=== PATIENT | male | born 1935 | race Hispanic/Latino ===

== ENCOUNTER 2024-04-05 06:28 | Emergency (ER) | payer OTHER ==
[2024-04-05 23:30] LABS: %Lymphocytes 6.1 % (21.0-51.0); %Neutrophils 87.3 % (42.0-75.0); Hematocrit 36.1 % (42.0-52.0); Hemoglobin 11.9 g/dL (14.0-18.0); Mean Corpuscular Hemoglobin 32.1 pg (27.0-31.0); Mean Corpuscular Volume 97.3 fl (78.0-98.0); Mean Platelet Volume 4.8 fL (7.4-10.4); Platelet Count 225 10x3/uL (130-400); Red Blood Cell (RBC) Count 3.71 mill/uL (4.70-6.10); White Blood Cell (WBC) Count 11.1 10x3/uL (4.8-10.8)
[2024-04-05 23:31] LABS: #Basophils 0.1 thou/uL (0.0-0.2); #Lymphocytes 0.7 thou/uL (1.20-3.40); #Monocytes 0.7 thou/uL (0.11-0.59); #Neutrophils 9.7 thou/uL (1.40-6.50); %Basophils 0.4 % (0.0-1.0); %Eosinophils 0.1 % (0.0-10.0); Lactic Acid 1.14 mmol/L (0.5-2.2)
[2024-04-05 23:32] LABS: ALT (SGPT) 11 U/L (8-55); AST (SGOT) 10 U/L (5-34); Acetaminophen Less than 10 mcg/mL (Less than 10); Albumin 2.9 g/dL (3.4-4.8); Alkaline Phosphatase 63 U/L (40-110); Anion Gap 14 mmol/L (10-20); BUN (Urea Nitrogen) 26 mg/dL (8.4-25.7); Bilirubin, Total 0.7 mg/dL (0.2-1.2); Calc. Creatinine Clearance 0 mL/min (70-130); Calcium 9.1 mg/dL (7.6-10.4); Carbon Dioxide 28 mmol/L (23-31); Chloride 106 mmol/L (98-107); Estimated GFR 52; Globulin 3.5 g/dL (2.4-3.5); Glucose 103 mg/dL (83-110); Potassium 3.9 mmol/L (3.5-5.1); Protein, Total 6.4 g/dL (5.8-8.1); Sodium 144 mmol/L (136-145)
[2024-04-05 23:33] LABS: Alcohol Less than 10.0 mg/dL (Less than 10); INR-International Normal Ratio 1.1; Prothrombin Time 14.1 sec (12.0-14.7); Salicylate Less than 8.0 mg/dL (Less than 8.0); Troponin I 0.075 ng/mL (< 0.028)
[2024-04-05 23:34] LABS: Amphetamine Not Detected (NotDetected); Barbiturates Screen Not Detected (NotDetected); Benzodiazepine Screen Not Detected (NotDetected); Cocaine Metabolite Screen Not Detected (NotDetected); Methadone Not Detected (NotDetected); Methamphetamine Not Detected (NotDetected); Opiate Screen Not Detected (NotDetected); Oxycodone Screen Not Detected (NotDetected); Phencyclidine (PCP) Not Detected (NotDetected); THC/Cannabinoid Screen Not Detected (NotDetected); Tricyclic Screen Not Detected (NotDetected)
[2024-04-05 23:35] LABS: Clarity Clear (Clear)
[2024-04-05 23:36] LABS: Bilirubin Negative (Negative); Blood, Urine Moderate (Negative); Glucose, Urine (Dipstick) Negative (Negative); Ketone, Urine 40 mg/dL (Negative); Leukocyte Trace (Negative); Nitrite Positive (Negative); Protein, Urine (Dipstick) Trace mg/dL (Neg-Trace); Urobilinogen 0.2 mg/dL (Less than 2); WBC/HPF 21-50 HPF (0-3)
[2024-04-05 23:37] LABS: Bacteria/HPF 2+ HPF (None Seen); SARS-CoV-2 NAA Rapid Test DETECTED (NotDetected); Squamous Epithelial None Seen HPF (0-3)
== END 2024-04-05 13:40 | disposition short-term general hospital (02) ==
LOC: NAV ERS 06:28
DX: S00.83XA Contusion of other part of head, initial encounter (principal); R41.82 Altered mental status, unspecified; I48.20 Chronic atrial fibrillation, unspecified; U07.1 COVID-19; R65.10 Systemic inflammatory response syndrome (SIRS) of non-infectious origin without acute organ dysfunction; R00.0 Tachycardia, unspecified; I11.0 Hypertensive heart disease with heart failure; I50.9 Heart failure, unspecified; K21.9 Gastro-esophageal reflux disease without esophagitis; Z79.899 Other long term (current) drug therapy; Z79.82 Long term (current) use of aspirin; W19.XXXA Unspecified fall, initial encounter
CPT/HCPCS: 70450; 71045; 72125; 80053; 80306; 80307; 81001; 83605; 84484; 85025; 85610; 87040; 87077; 87086; 87186; 87400; 96365; U0002

== ENCOUNTER 2024-04-17 02:51 | Emergency (ER) | payer OTHER | END 2024-04-17 07:16 | LOC: NAV ERS 02:51 | DX: S70.01XA Contusion of right hip, initial encounter (principal); K21.9 Gastro-esophageal reflux disease without esophagitis; I13.10 Hypertensive heart and chronic kidney disease without heart failure, with stage 1 through stage 4 chronic kidney disease, or unspecified chronic kidney disease; I50.9 Heart failure, unspecified; N18.9 Chronic kidney disease, unspecified; Z79.82 Long term (current) use of aspirin; Z79.899 Other long term (current) drug therapy; W18.30XA Fall on same level, unspecified, initial encounter | CPT/HCPCS: 99283 ==

== ENCOUNTER 2024-04-19 15:24 | Emergency (ER) | payer OTHER ==
[2024-04-19] MEDS ORDERED: Ondansetron ODT 4 MG TAB ONE (15:58)
[2024-04-19] MEDS ORDERED: HYDROcodone/Acetaminophen 5/325 mg Tablet ONE ×2 (15:58→21:37)
[2024-04-19 16:17] LABS: #Eosinophils 0.1 thou/uL (0.0-0.7); #Lymphocytes 1.2 thou/uL (1.20-3.40); #Monocytes 0.4 thou/uL (0.11-0.59); #Neutrophils 4.6 thou/uL (1.40-6.50); %Basophils 0.7 % (0.0-1.0); %Eosinophils 1.8 % (0.0-10.0); %Lymphocytes 18.2 % (21.0-51.0); %Monocytes 6.8 % (0.0-10.0); %Neutrophils 72.5 % (42.0-75.0); Hematocrit 32.5 % (42.0-52.0); Mean Corpuscular HGB CONC 30.8 g/dL (32.0-36.0); Mean Corpuscular Hemoglobin 31.8 pg (27.0-31.0); Platelet Count 484 10x3/uL (130-400); RBC Distribution Width 13.4 % (11.5-14.5); Red Blood Cell (RBC) Count 3.14 mill/uL (4.70-6.10); White Blood Cell (WBC) Count 6.3 10x3/uL (4.8-10.8)
[2024-04-19 16:29] LABS: Troponin I 0.062 ng/mL (< 0.028)
[2024-04-19 16:31] LABS: ALT (SGPT) 12 U/L (8-55); AST (SGOT) 12 U/L (5-34); Albumin 2.6 g/dL (3.4-4.8); Alkaline Phosphatase 64 U/L (40-110); Anion Gap 15 mmol/L (10-20); BUN (Urea Nitrogen) 44 mg/dL (8.4-25.7); Bilirubin, Total 0.4 mg/dL (0.2-1.2); CK (CPK) 103 U/L (30-200); Calc. Creatinine Clearance 0 mL/min (70-130); Calcium 9.3 mg/dL (7.8-10.44); Carbon Dioxide 22 mmol/L (23-31); Chloride 113 mmol/L (98-107); Estimated GFR 52; Globulin 4.5 g/dL (2.4-3.5); Glucose 106 mg/dL (83-110); Potassium 4.9 mmol/L (3.5-5.1); Protein, Total 7.1 g/dL (5.8-8.1); Sodium 145 mmol/L (136-145)
[2024-04-19] MEDS ORDERED: Aspirin 325 MG TAB ONE (18:04)
[2024-04-19 19:43] LABS: Troponin I 0.081 ng/mL (< 0.028)
[2024-04-19] MEDS ORDERED: Sodium Chloride 0.9% 1,000 ML ONE (23:01)
== END 2024-04-20 02:58 | disposition short-term general hospital (02) ==
LOC: NAV ERS 15:24
DX: S72.111A Displaced fracture of greater trochanter of right femur, initial encounter for closed fracture (principal); R79.89 Other specified abnormal findings of blood chemistry; I25.10 Atherosclerotic heart disease of native coronary artery without angina pectoris; I13.0 Hypertensive heart and chronic kidney disease with heart failure and stage 1 through stage 4 chronic kidney disease, or unspecified chronic kidney disease; N18.9 Chronic kidney disease, unspecified; I50.9 Heart failure, unspecified; K21.9 Gastro-esophageal reflux disease without esophagitis; Z79.82 Long term (current) use of aspirin; Z79.899 Other long term (current) drug therapy; W19.XXXA Unspecified fall, initial encounter
CPT/HCPCS: 70450; 72131; 72192; 80053; 82550; 84484; 85025; 93005; 96360; J7030; Q0162